=== PATIENT | male | born 1990 | race American Indian/Alaskan Native ===

== ENCOUNTER 2021-06-17 14:07 | Emergency (ER) | payer SELFPAY ==
--- NOTE | 2021-06-17 15:00 | Emergency Department Report ---
- General Chief Complaint: Adult Asthma Stated Complaint: ASTHMA Time Seen by Provider: 06/17/21 14:40 Source: patient Mode of arrival: Ambulatory Limitations: No Limitations - History of Present Illness MD Complaint: cough, nasal congestion -: days(s) Severity: moderate Context: sick contacts Associated Symptoms: denies other symptoms, cough - Related Data Previous Rx's Medication Instructions Recorded Last Taken Type guaiFENesin [Robitussin] 5 ml PO TID PRN #100 ml 06/17/21 Unknown Rx Allergies Allergy/AdvReac Type Severity Reaction Status Date / Time No Known Allergies Allergy Verified 06/17/21 14:55 ED Review of Systems ROS: Stated complaint: ASTHMA Other details as noted in HPI Comment: All other systems reviewed and negative Constitutional: denies: chills, fever Respiratory: cough. denies: orthopnea, shortness of breath, SOB with exertion, SOB at rest, wheezing Cardiovascular: denies: chest pain, palpitations, dyspnea on exertion Gastrointestinal: denies: abdominal pain, nausea, vomiting, diarrhea, melena ED Past Medical Hx - Medications Home Medications: Home Medications Medication Instructions Recorded Confirmed Last Taken Type guaiFENesin [Robitussin] 5 ml PO TID PRN #100 ml 06/17/21 Unknown Rx ED Physical Exam - General Limitations: No Limitations General appearance: alert, in no apparent distress - Head Head exam: Present: atraumatic, normocephalic, normal inspection - Eye Eye exam: Present: normal appearance, PERRL - ENT ENT exam: Present: normal exam, normal orophraynx, mucous membranes moist - Neck Neck exam: Present: normal inspection, full ROM. Absent: tenderness, meningismus - Respiratory Respiratory exam: Present: normal lung sounds bilaterally - Cardiovascular Cardiovascular Exam: Present: regular rate, normal rhythm, normal heart sounds - GI/Abdominal GI/Abdominal exam: Present: soft, normal bowel sounds. Absent: distended, tenderness, guarding, rebound, rigid - Back Exam Back exam: Present: normal inspection, full ROM. Absent: CVA tenderness (R), CVA tenderness (L) - Neurological Exam Neurological exam: Present: alert, oriented X3, CN II-XII intact - Psychiatric Psychiatric exam: Present: normal mood - Skin Skin exam: Present: warm, intact, normal color ED Course Vital Signs 06/17/21 06/17/21 14:40 14:56 Temperature 98.4 F 98.4 F Pulse Rate 80 73 Respiratory 18 16 Rate Blood Pressure 112/81 O2 Sat by Pulse 98 97 Oximetry Critical care attestation.: If time is entered above; I have spent that time in minutes in the direct care of this critically ill patient, excluding procedure time. ED Disposition Clinical Impression: Upper respiratory infection Disposition: HOME / SELF CARE / HOMELESS Is pt being admited?: No Condition: Stable Instructions: Viral Respiratory Infection, [id number] Prescriptions: guaiFENesin [Robitussin] 5 ml PO TID PRN #100 ml PRN Reason: Cough Referrals: [facility] [Provider Group] - 3-5 Days
[2021-06-17 15:29] VITALS: BP 112/81
--- NOTE | 2021-06-18 09:38 | Electrocardiograph Report ---
[facility] Test Date: 2021-06-17 Test Time: 14:15:42 Pat Name: MK SRINIVASAN Department: Room: Gender: M Reception Interviewer: ARINA : 1990 Requested By: LYNNE DUNHAM Order Number: [id number] Reading MD: Dilan Toledo Measurements Intervals [place] Rate: 70 P: 32 WV: 140 QRS: -37 QRSD: 98 T: 60 QT: 388 QTc: 417 Interpretive Statements Sinus rhythm Left axis deviation ST elevation suggests acute pericarditis No previous ECG available for comparison Electronically Signed On 06-18-2021 9:38:23 EST by Dilan Toledo
== END 2021-06-17 15:36 | disposition home or self-care (01) ==
LOC: ED 14:07
DX: J06.9 Acute upper respiratory infection, unspecified (principal)
CPT/HCPCS: 93005; 99282